=== PATIENT | female | born 1965 | race Caucasian/White ===

== ENCOUNTER 2022-06-07 10:07 | Outpatient (CLI) | payer OTHER, SELFPAY ==
[2022-06-07 17:29] LABS: Vitamin B12* 341 pg/mL (243-894)
[2022-06-09 01:25] LABS: Rheumatoid Factor <10 IU/mL (0-14)
[2022-06-09 07:55] LABS: Anti-Nuclear Ab(ANA)IgG ELISA Detected (None Detected)
[2022-06-10 00:26] LABS: ANA Pattern Homogeneous; Antinuclear AntibodyHEp-2 Detected (<1:80)
== END 2022-06-07 10:08 | disposition home or self-care (01) ==
PROVIDERS: PCP Family Medicine; Visit Provider Otolaryngology
DX: Z00.00 Encounter for general adult medical examination without abnormal findings (principal); K13.79 Other lesions of oral mucosa
CPT/HCPCS: 82607; 84443; 86039; 86431; 86617; 86618